=== PATIENT | female | born 1960 | race African-American/Black ===

== ENCOUNTER 2016-12-25 03:22 | Inpatient (IN) | payer OTHER ==
[2016-12-25] VITALS (9 sets, daily range): BP systolic 80–108; BP diastolic 46–72
[~2016-12-25] VITALS: Ht 149.9 cm; Wt 62.6 kg
[2016-12-25] MEDS ORDERED: ONDANSETRON HCL 4MG/2ML VIAL IV STA (03:45)
[2016-12-25] MEDS ORDERED: FAMOTIDINE 20MG/2ML VIAL IV STA (03:45)
[2016-12-25] MEDS ORDERED: SODIUM CHLORIDE 0.9% 1,000 ML IV ONE (03:45)
[2016-12-25] MEDS ORDERED: MORPHINE SULFATE 4 MG/ML CPJ (NOT FOR IM USE) IV STA (03:45)
[2016-12-25 04:17] LABS: HEMATOCRIT. 29.8 % (36.0-48.0); HEMOGLOBIN. 9.4 g/dL (12.0-16.0); MEAN CORPUSCULAR HEMOGLOBIN 23.4 pg (28.0-32.0); MEAN PLATELET VOLUME 9.2 fl (7.4-10.4); PLATELET 232 x1000/uL (130-400); RED BLOOD CELL COUNT 4.02 mill/uL (4.2-5.4); RED CELL DISTRIBUTION WIDTH 15.7 % (11.6-14.6)
[2016-12-25 04:19] LABS: INR 1.1; PROTHROMBIN TIME 11.4 sec
[2016-12-25 04:33] LABS: CARBON DIOXIDE 25 mEq/L (21-32); CHLORIDE 95 mEq/L (98-107); ETHANOL BLOOD < 10 mg/dL; TROPONIN I < 0.02 ng/mL (0.00-0.04)
[2016-12-25] MEDS ORDERED: PIPERACILLIN/TAZ 3.375G PREMIX 50 ML IV ONE (06:30)
[2016-12-25] MEDS ORDERED: METRONIDAZOLE 500 MG PREMIX 100 ML IV ONE (06:30)
[2016-12-25 06:47] LABS: PLATELET ESTIMATE NORMAL
[2016-12-25 07:24] LABS: GLUCOSE URINE NEGATIVE (NEGATIVE); KETONES URINE NEGATIVE (NEGATIVE); LEUKOCYTE ESTERASE URINE 2+ (NEGATIVE); NITRITE URINE NEGATIVE (NEGATIVE); OCCULT BLOOD URINE 2+ (NEGATIVE); PROTEIN URINE 2+ (NEGATIVE); SPECIFIC GRAVITY URINE 1.012 (1.005-1.030)
[2016-12-25 07:36] LABS: CLARITY URINE CLOUDY (CLEAR); COLOR URINE YELLOW (YELLOW)
[2016-12-25 08:10] LABS: *AMPHETAMINES SCREEN URINE PRESUMTIVE POSITIVE (NEGATIVE); *BARBITURATES SCREEN URINE NEGATIVE (NEGATIVE); *BENZODIAZEPINES SCREEN URINE NEGATIVE (NEGATIVE); *COCAINE SCREEN URINE NEGATIVE (NEGATIVE); CANNABINOID URINE SCREEN NEGATIVE (NEGATIVE); METHADONE URINE SCREEN NEGATIVE (NEGATIVE); OPIATES URINE SCREEN PRESUMTIVE POSITIVE (NEGATIVE); PHENCYCLIDINE URINE SCREEN NEGATIVE (NEGATIVE)
[2016-12-25] MEDS ORDERED: PRAV20TA57 PO (10:06)
[2016-12-25] MEDS ORDERED: FERR-63 PO (10:06)
[2016-12-25] MEDS ORDERED: SERT25TA PO (10:06)
[2016-12-25] MEDS ORDERED: HYDR25TA PO (10:06)
[2016-12-25] MEDS ORDERED: METF500T4 PO (10:06)
[2016-12-25] MEDS ORDERED: LISI-186 PO (10:06)
[2016-12-25] MEDS ORDERED: ATAZ300C2 PO (10:18)
[2016-12-25] MEDS ORDERED: RITO100T PO (10:18)
[2016-12-25] MEDS ORDERED: novolog SQ (10:18)
[2016-12-25] MEDS ORDERED: INSU3INS6 SUBCUT (10:18)
[2016-12-25] MEDS ORDERED: DIPHENHYDRAMINE 50MG/ML VIAL IV PRN (12:15)
[2016-12-25] MEDS ORDERED: CLONIDINE 0.1MG TABLET PO PRN (12:15)
[2016-12-25] MEDS ORDERED: CEFTRIAXONE 1 G PREMIX 50 ML IV SCH (12:15)
[2016-12-25] MEDS ORDERED: IPRATROPIUM/ALBUTEROL 0.5-3(2.5)MG/3ML NEB INH PRN (12:15)
[2016-12-25] MEDS ORDERED: *CEFTRIAXONE XX SCH (12:30)
[2016-12-25] MEDS ORDERED: POTASSIUM CHLORIDE INJ 40 MEQ in DEXT 5% WATER 250 ML IV NR (13:30)
[2016-12-25] MEDS: HYDROCODONE/ACETAMINOPHEN 5/325MG TABLET PO PRN (13:57)
[2016-12-25] MEDS: ACETAMINOPHEN 325MG TABLET PO PRN (13:57)
[2016-12-25] MEDS: CEFTRIAXONE 1 G PREMIX 50 ML IV SCH (14:01)
[2016-12-25] MEDS ORDERED: DEXTROSE 50% WATER 50ML SYRINGE IV PRN (14:15)
[2016-12-25] MEDS: HYDROCHLOROTHIAZIDE 25MG TABLET PO SCH (14:15)
[2016-12-25] MEDS: LISINOPRIL 5MG TABLET PO SCH (14:15)
[2016-12-25] MEDS ORDERED: METFORMIN HCL 500MG TABLET PO SCH (14:15)
[2016-12-25] MEDS: METRONIDAZOLE 500 MG PREMIX 100 ML IV SCH ×2 (15:48→21:14)
[2016-12-25] MEDS: SERTRALINE HCL 25MG TABLET PO SCH (15:48)
[2016-12-25] MEDS: FERROUS SULFATE 325MG TABLET PO SCH (16:34)
[2016-12-25] MEDS: RITONAVIR 100 MG TABLET PO SCH ×2 (16:35→18:28)
[2016-12-25] MEDS: SODIUM CHLORIDE 0.9% 1,000 ML IV SCH (16:35)
[2016-12-25] MEDS: BLOOD SUGAR DIAGNOSTIC STRIP TEST SCH ×2 (16:35→21:14)
[2016-12-25] MEDS: ATAZANAVIR SULFATE 150MG CAPSULE PO SCH ×2 (16:35→18:28)
[2016-12-25] MEDS: INSULIN LISPRO 100 UNITS/ML SUBCUT SCH ×2 (17:40→21:00)
[2016-12-25 18:43] LABS: CLARITY URINE TURBID (CLEAR); COLOR URINE YELLOW (YELLOW); GLUCOSE URINE NEGATIVE (NEGATIVE); KETONES URINE NEGATIVE (NEGATIVE); LEUKOCYTE ESTERASE URINE 3+ (NEGATIVE); NITRITE URINE NEGATIVE (NEGATIVE); OCCULT BLOOD URINE 2+ (NEGATIVE); PH URINE 5.5 (4.5-8.0); PROTEIN URINE 2+ (NEGATIVE); SPECIFIC GRAVITY URINE 1.019 (1.005-1.030)
[2016-12-25] MEDS ORDERED: TEMAZEPAM 15MG CAPSULE PO PRN (21:00)
[2016-12-25] MEDS: ATORVASTATIN CALCIUM 20MG TABLET PO SCH (21:14)
[2016-12-25] MEDS: INSULIN DETEMIR UD 100 UNITS/ML SYR SUBCUT SCH (21:16)
[2016-12-25] MEDS: ONDANSETRON HCL 4MG/2ML VIAL IV PRN (22:21)
[2016-12-26] VITALS (15 sets, daily range): BP systolic 96–145; BP diastolic 22–80
[2016-12-26] MEDS: SODIUM CHLORIDE 0.9% 1,000 ML IV SCH ×3 (01:45→21:52)
[2016-12-26] MEDS: METRONIDAZOLE 500 MG PREMIX 100 ML IV SCH ×3 (06:22→21:52)
[2016-12-26 06:27] LABS: BASOPHILS % 0.3 % (0.0-2.0); EOSINOPHILS % 0.2 % (0.0-5.0); HEMATOCRIT. 25.5 % (36.0-48.0); HEMOGLOBIN. 8.2 g/dL (12.0-16.0); LYMPHOCYTES % 9.7 % (20.0-50.0); MEAN CORPUSCULAR HEMOGLOBIN 23.7 pg (28.0-32.0); MEAN CORPUSCULAR VOLUME 73.6 fL (81.0-99.0); MEAN PLATELET VOLUME 9.4 fl (7.4-10.4); NEUTROPHILS % 81.8 % (40.0-76.0); PLATELET 197 x1000/uL (130-400); RED BLOOD CELL COUNT 3.47 mill/uL (4.2-5.4)
[2016-12-26] MEDS: BLOOD SUGAR DIAGNOSTIC STRIP TEST SCH ×4 (07:30→21:52)
[2016-12-26] MEDS: INSULIN LISPRO 100 UNITS/ML SUBCUT SCH ×7 (07:30→21:00)
[2016-12-26 08:07] LABS: CARBON DIOXIDE 22 mEq/L (21-32); CHLORIDE 103 mEq/L (98-107); HDL CHOLESTEROL 12 mg/dL (40-59); LDL CHOLESTEROL 32 mg/dL (5-100)
[2016-12-26] MEDS: SERTRALINE HCL 25MG TABLET PO SCH (08:58)
[2016-12-26] MEDS: LISINOPRIL 5MG TABLET PO SCH (08:58)
[2016-12-26] MEDS: FERROUS SULFATE 325MG TABLET PO SCH ×2 (08:59→18:00)
[2016-12-26] MEDS: HYDROCHLOROTHIAZIDE 25MG TABLET PO SCH (08:59)
[2016-12-26] MEDS: CEFTRIAXONE 1 G PREMIX 50 ML IV SCH (13:14)
[2016-12-26] MEDS: HYDROCODONE/ACETAMINOPHEN 5/325MG TABLET PO PRN (14:55)
[2016-12-26] MEDS: INSULIN DETEMIR UD 100 UNITS/ML SYR SUBCUT SCH (21:52)
[2016-12-26] MEDS: ATORVASTATIN CALCIUM 20MG TABLET PO SCH (21:53)
[2016-12-27] VITALS (9 sets, daily range): BP systolic 103–137; BP diastolic 52–73
[2016-12-27] MEDS: METRONIDAZOLE 500 MG PREMIX 100 ML IV SCH ×3 (06:10→21:01)
[2016-12-27] MEDS: MORPHINE SULFATE 2 MG/ML CPJ (NOT FOR IM USE) IV PRN (06:24)
[2016-12-27 06:44] LABS: HEMATOCRIT. 25.5 % (36.0-48.0); HEMOGLOBIN. 8.1 g/dL (12.0-16.0); MEAN CORPUSCULAR HEMOGLOBIN 23.1 pg (28.0-32.0); MEAN CORPUSCULAR VOLUME 72.6 fL (81.0-99.0); MEAN PLATELET VOLUME 9.3 fl (7.4-10.4); PLATELET 230 x1000/uL (130-400); RED BLOOD CELL COUNT 3.52 mill/uL (4.2-5.4); RED CELL DISTRIBUTION WIDTH 16.5 % (11.6-14.6)
[2016-12-27] MEDS: INSULIN LISPRO 100 UNITS/ML SUBCUT SCH ×8 (07:30→21:00)
[2016-12-27] MEDS: BLOOD SUGAR DIAGNOSTIC STRIP TEST SCH ×4 (08:00→21:03)
[2016-12-27] MEDS: SERTRALINE HCL 25MG TABLET PO SCH (08:05)
[2016-12-27] MEDS: LISINOPRIL 5MG TABLET PO SCH (08:06)
[2016-12-27] MEDS: FERROUS SULFATE 325MG TABLET PO SCH ×2 (08:06→18:18)
[2016-12-27] MEDS: HYDROCHLOROTHIAZIDE 25MG TABLET PO SCH (08:06)
[2016-12-27 08:08] LABS: CARBON DIOXIDE 23 mEq/L (21-32); CHLORIDE 105 mEq/L (98-107)
[2016-12-27] MEDS: SODIUM CHLORIDE 0.9% 1,000 ML IV SCH ×2 (08:15→18:19)
[2016-12-27] MEDS ORDERED: POTASSIUM CHLORIDE 20MEQ/PACKET PO NR (12:00)
[2016-12-27] MEDS: SUCRALFATE 1 G/10 ML UDC PO SCH ×3 (12:58→21:02)
[2016-12-27] MEDS: CEFTRIAXONE 1 G PREMIX 50 ML IV SCH (12:58)
[2016-12-27 14:30] LABS: PLATELET ESTIMATE NORMAL
[2016-12-27] MEDS: LAMIVUDINE 150MG TABLET PO SCH (18:18)
[2016-12-27] MEDS: ATAZANAVIR SULFATE 150MG CAPSULE PO SCH (18:18)
[2016-12-27] MEDS: RITONAVIR 100 MG TABLET PO SCH (18:18)
[2016-12-27] MEDS: ESTROGENS CONJUGATED VG SCH (21:00)
[2016-12-27] MEDS: ACETAMINOPHEN 325MG TABLET PO PRN (21:03)
[2016-12-27] MEDS: ATORVASTATIN CALCIUM 20MG TABLET PO SCH (21:03)
[2016-12-28] VITALS (8 sets, daily range): BP systolic 112–135; BP diastolic 65–78
[2016-12-28] MEDS: INSULIN DETEMIR UD 100 UNITS/ML SYR SUBCUT SCH ×2 (00:06→21:54)
[2016-12-28] MEDS: SODIUM CHLORIDE 0.9% 1,000 ML IV SCH ×2 (02:53→14:29)
[2016-12-28] MEDS: METRONIDAZOLE 500MG TABLET PO SCH ×3 (05:36→21:52)
[2016-12-28 06:57] LABS: CARCINO EMBRYONIC ANTIGEN 0.8 ng/ml
[2016-12-28] MEDS: INSULIN LISPRO 100 UNITS/ML SUBCUT SCH ×7 (07:30→21:51)
[2016-12-28 07:57] LABS: FOLIC ACID (FOLATE) SERUM 13.5 ng/mL (>5.38)
[2016-12-28] MEDS: SUCRALFATE 1 G/10 ML UDC PO SCH ×4 (08:27→21:04)
[2016-12-28] MEDS: BLOOD SUGAR DIAGNOSTIC STRIP TEST SCH ×4 (08:27→21:00)
[2016-12-28] MEDS: FERROUS SULFATE 325MG TABLET PO SCH ×2 (08:30→18:29)
[2016-12-28] MEDS: SERTRALINE HCL 25MG TABLET PO SCH (08:30)
[2016-12-28] MEDS: ABACAVIR SULFATE 300MG TABLET PO SCH (08:31)
[2016-12-28] MEDS: RITONAVIR 100 MG TABLET PO SCH (08:31)
[2016-12-28] MEDS: ATAZANAVIR SULFATE 150MG CAPSULE PO SCH (08:31)
[2016-12-28] MEDS: LAMIVUDINE 150MG TABLET PO SCH (08:31)
[2016-12-28] MEDS: HYDROCHLOROTHIAZIDE 25MG TABLET PO SCH (08:32)
[2016-12-28] MEDS: LISINOPRIL 5MG TABLET PO SCH (08:33)
[2016-12-28] MEDS: CEFTRIAXONE 1 G PREMIX 50 ML IV SCH (14:29)
[2016-12-28] MEDS: MORPHINE SULFATE 2 MG/ML CPJ (NOT FOR IM USE) IV PRN (14:32)
[2016-12-28] MEDS: ESTROGENS CONJUGATED VG SCH (21:00)
[2016-12-28] MEDS: ATORVASTATIN CALCIUM 20MG TABLET PO SCH (21:04)
[2016-12-29] VITALS: BP 113/78
[2016-12-29 04:00] VITALS: BP 131/71
[2016-12-29] MEDS: METRONIDAZOLE 500MG TABLET PO SCH (05:45)
[2016-12-29 06:56] LABS: HEMATOCRIT. 27.6 % (36.0-48.0); HEMOGLOBIN. 8.8 g/dL (12.0-16.0); MEAN CORPUSCULAR VOLUME 72.3 fL (81.0-99.0); MEAN PLATELET VOLUME 8.9 fl (7.4-10.4); PLATELET 288 x1000/uL (130-400); RED BLOOD CELL COUNT 3.81 mill/uL (4.2-5.4); RED CELL DISTRIBUTION WIDTH 16.3 % (11.6-14.6)
[2016-12-29] MEDS: INSULIN LISPRO 100 UNITS/ML SUBCUT SCH ×4 (07:30→13:00)
[2016-12-29] MEDS: BLOOD SUGAR DIAGNOSTIC STRIP TEST SCH ×2 (07:30→12:33)
[2016-12-29 08:00] VITALS: BP 115/80
[2016-12-29] MEDS: SUCRALFATE 1 G/10 ML UDC PO SCH ×2 (08:30→12:30)
[2016-12-29] MEDS ORDERED: POTASSIUM CHLORIDE INJ 40 MEQ in DEXT 5% WATER 250 ML IV NR (09:00)
[2016-12-29] MEDS ORDERED: MAGNESIUM SULFATE 3 GM in DEXT 5% WATER 96 ML IV NR (09:00)
[2016-12-29] MEDS: RITONAVIR 100 MG TABLET PO SCH (09:30)
[2016-12-29] MEDS: SERTRALINE HCL 25MG TABLET PO SCH (09:31)
[2016-12-29] MEDS: LAMIVUDINE 150MG TABLET PO SCH (09:31)
[2016-12-29] MEDS: ABACAVIR SULFATE 300MG TABLET PO SCH (09:31)
[2016-12-29] MEDS: FERROUS SULFATE 325MG TABLET PO SCH (09:31)
[2016-12-29] MEDS: LISINOPRIL 5MG TABLET PO SCH (09:32)
[2016-12-29] MEDS: HYDROCHLOROTHIAZIDE 25MG TABLET PO SCH (09:33)
[2016-12-29] MEDS: ATAZANAVIR SULFATE 150MG CAPSULE PO SCH (09:33)
[2016-12-29] MEDS ORDERED: METR250T PO (09:41)
[2016-12-29] MEDS ORDERED: LEVO500T15 PO (09:41)
[2016-12-29 10:00] VITALS: BP 121/71
[2016-12-29 12:00] VITALS: BP 117/77
[2016-12-29] MEDS: ONDANSETRON HCL 4MG/2ML VIAL IV PRN (12:01)
[2016-12-29] MEDS: MORPHINE SULFATE 2 MG/ML CPJ (NOT FOR IM USE) IV PRN (12:09)
[2016-12-29 13:09] VITALS: BP 117/71
[2016-12-29] MEDS: CEFTRIAXONE 1 G PREMIX 50 ML IV SCH (13:30)
[2016-12-29] MEDS ORDERED: METRONIDAZOLE 250MG TABLET PO SCH (14:00)
[2016-12-29 15:44] LABS: PLATELET ESTIMATE NORMAL
[2017-01-01 13:07] LABS: HGB A 97.8 % (94.0-98.0); HGB A2 2.2 % (0.7-3.1); HGB SOLUBILITY Negative (Negative)
== END 2016-12-29 16:11 | disposition home or self-care (01) | DRG 892 ==
LOC: ER 03:22 → 7WST 06:11 → EDBEDREQ 06:53 → EDBEDREQTM 06:53 → ENRESERV 07:21 → 5EST 17:17
PROVIDERS: ADMIT Internal Medicine; ATTEND Internal Medicine
DX: A41.9 Sepsis, unspecified organism (principal); B20 Human immunodeficiency virus [HIV] disease; N17.0 Acute kidney failure with tubular necrosis; I13.10 Hypertensive heart and chronic kidney disease without heart failure, with stage 1 through stage 4 chronic kidney disease, or unspecified chronic kidney disease; E11.22 Type 2 diabetes mellitus with diabetic chronic kidney disease; F15.90 Other stimulant use, unspecified, uncomplicated; K44.9 Diaphragmatic hernia without obstruction or gangrene; K57.90 Diverticulosis of intestine, part unspecified, without perforation or abscess without bleeding; K80.20 Calculus of gallbladder without cholecystitis without obstruction; N18.9 Chronic kidney disease, unspecified; N39.0 Urinary tract infection, site not specified; D63.8 Anemia in other chronic diseases classified elsewhere; E78.00 Pure hypercholesterolemia, unspecified; K52.9 Noninfective gastroenteritis and colitis, unspecified; F32.9 Major depressive disorder, single episode, unspecified; N81.4 Uterovaginal prolapse, unspecified
CPT/HCPCS: 36415; 71010; 74176; 80048; 80053; 80061; 80305; 81001; 82378; 82728; 82746; 82962; 83021; 83540; 83550; 83605; 83690; 83735; 83880; 84484; 85025; 85610; 85660; 86140; 87015; 87040; 87045; 87077; 87086; 87186; 87427; 87449; 87493; 89055; 93005; 93970; 96361; 96365; 96367; 96375; 99291; A6261; G0482; J0696; J1815; J2270; J2405; J2543; J3475; J3480; J3490; J7030; J7040; J7050; J7060

== ENCOUNTER 2021-03-14 19:30 | Emergency (ER) | payer OTHER ==
[~2021-03-14] VITALS: Ht 149.9 cm; Wt 62.7 kg
[~2021-03-14 19:30] MED LIST: ATAZ300C PO; FERR-63 PO; HYDR25TA PO; INSU3INS6 SUBCUT; LEVO500T2 PO; LISI-186 PO; METF-414 PO; METR250T PO; PRAV20TA57 PO; RITO100T PO; SERT25TA PO; novolog SQ
[2021-03-15] MEDS ORDERED: MAGNESIUM/ALUMINUM HYDROXIDE/SIMETHICONE 30ML UDC PO STA ×2 (00:54)
[2021-03-15] MEDS ORDERED: ONDANSETRON 4MG ODT PO STA (00:54)
[2021-03-15] MEDS ORDERED: ACETAMINOPHEN 325MG TABLET PO STA (00:54)
[2021-03-15] MEDS ORDERED: FAMOTIDINE 20MG TABLET PO ONE (01:00)
[2021-03-15] MEDS ORDERED: SODIUM CHLORIDE 0.9% 1,000 ML IV ONE (01:00)
[2021-03-15 01:17] LABS: BASOPHILS % 0.3 % (0.0-2.0); CHLORIDE 101 mEq/L (98-107); EOSINOPHILS % 1.3 % (0.0-5.0); HEMATOCRIT. 39.7 % (36.0-48.0); HEMOGLOBIN. 12.6 g/dL (12.0-16.0); LYMPHOCYTES % 23.2 % (20.0-50.0); MEAN CORPUSCULAR HEMOGLOBIN 23.3 pg (28.0-32.0); MEAN CORPUSCULAR VOLUME 73.5 fL (81.0-99.0); MEAN PLATELET VOLUME 9.1 fl (7.4-10.4); NEUTROPHILS % 67.2 % (40.0-76.0); PLATELET 257 x1000/uL (130-400); RED CELL DISTRIBUTION WIDTH 14.7 % (11.6-14.6)
[2021-03-15 01:23] LABS: PROTHROMBIN TIME 10.3 sec (9.6-11.0)
[2021-03-15] MEDS ORDERED: SODIUM CHLORIDE 0.9% 1,000 ML IV NR (02:30)
[2021-03-15] MEDS ORDERED: CEFTRIAXONE 1 G PREMIX 50 ML IV ONE (02:45)
[2021-03-15] MEDS ORDERED: MORPHINE SULFATE 4 MG/ML CPJ (NOT FOR IM USE) IV ONE (02:45)
[2021-03-15] MEDS ORDERED: METRONIDAZOLE 500 MG PREMIX 100 ML IV ONE (02:45)
[2021-03-15 05:15] LABS: CLARITY URINE CLOUDY (CLEAR); COLOR URINE ORANGE (YELLOW); KETONES URINE TRACE (NEGATIVE); LEUKOCYTE ESTERASE URINE 3+ (NEGATIVE); NITRITE URINE NEGATIVE (NEGATIVE); OCCULT BLOOD URINE NEGATIVE (NEGATIVE); PH URINE 5.5 (4.5-8.0); PROTEIN URINE 1+ (NEGATIVE); SPECIFIC GRAVITY URINE 1.022 (1.005-1.030)
[2021-03-15 07:00] VITALS: BP 97/67
== END 2021-03-15 07:19 | disposition short-term general hospital (02) ==
LOC: ER 19:30 → CANBEDREQ 03-15 06:49 → ER 03-15 07:19
DX: K80.50 Calculus of bile duct without cholangitis or cholecystitis without obstruction (principal); R74.01 Elevation of levels of liver transaminase levels; N28.9 Disorder of kidney and ureter, unspecified
CPT/HCPCS: 36415; 76700; 80053; 81003; 82962; 83690; 85025; 85610; 96361; 96365; 96368; 99285; J0696; J3490; J7030; Q0162